=== PATIENT | male | born 1995 | race African-American/Black ===

== ENCOUNTER 2020-07-04 15:01 | Emergency (ER) | payer OTHER ==
[~2020-07-04] VITALS: Ht 188 cm; Wt 80.7 kg
[2020-07-04] MEDS ORDERED: SERTRALINE HCL100 MG PO (15:22)
[2020-07-04] MEDS ORDERED: FLEXERIL PO (15:23)
[2020-07-04] MEDS ORDERED: WELLBUTRIN SR150 M1 PO (15:23)
[2020-07-04] MEDS ORDERED: NAPROXEN500 MG PO (15:24)
[2020-07-04 15:39] LABS: BASOPHILS 0.4 % (0.0-2.0); EOSINOPHILS 0.3 % (0.0-3.0); HEMATOCRIT 39.9 % (42.0-52.0); HEMOGLOBIN 13.7 gm/dL (14.0-18.0); LYMPHOCYTES 13.3 % (24.0-44.0); MCH 32.5 pg (26.0-34.0); MCHC 34.3 g/dL (28.0-37.0); MCV 94.7 fL (80.0-100.0); MONOCYTES 7.3 % (1.0-8.0); PLATELET COUNT 236 thou/uL (150-400); POLYS 78.7 % (36.0-66.0); RBC 4.21 mil/uL (4.50-6.00); RDW 15.1 % (10.5-14.5); WBC 10.2 thou/uL (4.0-11.0)
[2020-07-04 15:58] LABS: CALCIUM 9.9 mg/dL (8.5-10.1); CREATININE 1.1 mg/dL (0.7-1.3)
[2020-07-04 16:05] LABS: ALBUMIN 4.7 g/dL (3.4-5.0); TOTAL BILIRUBIN 0.4 mg/dL (0.2-1.0)
[2020-07-04] MEDS ORDERED: ATIVAN1 M1 PO (16:28)
[2020-07-04 16:39] LABS: AMP/METHAMP Negative (Negative); BARBITURATES Negative (Negative); BENZODIAZEPINES POSITIVE (Negative); COCAINE Negative (Negative); METHADONE Negative (Negative); OPIATES Negative (Negative); PCP Negative (Negative)
[2020-07-04 16:50] VITALS: BP 155/87
--- NOTE | 2020-07-05 07:16 | EKG ---
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: TEN : 1995 Requested By: Bradley Stephens Order Number: [id number] MD: Bonifacio Yañez Measurements Intervals [place] Rate: 103 P: SC: QRS: 40 QRSD: 93 T: 44 QT: 345 QTc: 452 Interpretive Statements NSR LVH by voltage Nonspecific T abnormalities, lateral leads No previous ECG available for comparison Electronically Signed On 07-05-2020 7:16:16 [employer]ESS[employer] by Bonifacio Yañez [email or web address] <ELECTRONICALLY SIGNED> By: Bonifacio Yañez MD, [facility] 07/05/20 0716 1513 1513 Bonifacio Yañez MD, FACC /EPI
== END 2020-07-04 16:51 | disposition home or self-care (01) ==
LOC: ER 15:01
PROVIDERS: Emergency Medicine
DX: R56.9 Unspecified convulsions (principal); F41.9 Anxiety disorder, unspecified; F32.9 Major depressive disorder, single episode, unspecified; Z79.899 Other long term (current) drug therapy; Z87.820 Personal history of traumatic brain injury

== ENCOUNTER 2020-07-27 10:58 | Emergency (ER) | payer OTHER ==
[~2020-07-27] VITALS: Ht 188 cm; Wt 79.4 kg
[~2020-07-27 10:58] MED LIST: ATIVAN1 M1 PO; FLEXERIL PO; NAPROXEN500 MG PO; SERTRALINE HCL100 MG PO; WELLBUTRIN SR150 M1 PO
[2020-07-27 11:02] VITALS: BP 142/79
== END 2020-07-27 13:29 | disposition home or self-care (01) ==
LOC: ER 10:58
DX: M25.551 Pain in right hip (principal); Z79.899 Other long term (current) drug therapy

== ENCOUNTER 2020-10-09 11:20 | Emergency (ER) | payer OTHER ==
[~2020-10-09] VITALS: Ht 188 cm; Wt 72.6 kg
[2020-10-09] MEDS ORDERED: NORCO5 PO ×2 (15:19→15:31)
[2020-10-09 15:35] VITALS: BP 118/68
== END 2020-10-09 15:35 | disposition home or self-care (01) ==
LOC: ER 11:20
DX: M87.850 Other osteonecrosis, pelvis (principal); Z79.899 Other long term (current) drug therapy